=== PATIENT | female | born 1950 | race Caucasian/White ===

== ENCOUNTER 2019-05-30 06:05 | Inpatient (IN) ==
[2019-05-30] MEDS ORDERED: CeFAZolin Syr 2,000MG/20 ML 2,000 MG/20 ML SYRINGE IVPB ONE (06:26)
[2019-05-30] MEDS ORDERED: Albuterol 2.5 MG/3 ML NEBULIZER IH PRN (06:26)
[2019-05-30] MEDS ORDERED: Ringers Solution, Lactated 1,000 ML IVC SCH (06:30)
[2019-05-30] MEDS ORDERED: Neostigmine Methylsulfate 3 MG/3 ML SYRINGE ONE (07:08)
[2019-05-30] MEDS ORDERED: Ondansetron 4 MG/2 ML VIAL ONE (07:08)
[2019-05-30] MEDS ORDERED: *HR* Rocuronium Bromide 50 MG/5 ML VIAL ONE (07:08)
[2019-05-30] MEDS ORDERED: Dexamethasone 4 MG/ML VIAL ONE ×2 (07:08→08:03)
[2019-05-30] MEDS ORDERED: *HR* FentaNYL (PF) 100 MCG/2 ML VIAL ONE ×2 (07:08→09:02)
[2019-05-30] MEDS ORDERED: Lidocaine -MPF 2% 2 ML VIAL ONE (07:08)
[2019-05-30] MEDS ORDERED: *HR* Propofol 200 MG/20 ML VIAL IVP ONE (07:09)
[2019-05-30] MEDS ORDERED: *HR* Midazolam HCl 2 MG/2 ML VIAL ONE (07:09)
[2019-05-30] MEDS ORDERED: Lidocaine HCL 4 ML Topical Solution (Laryng-O-Jet Kit Sterile Pak) TP ONE (07:09)
[2019-05-30] MEDS ORDERED: Heparin 1,000 UNITS/500 mL 500 ML ONE (07:10)
[2019-05-30] MEDS ORDERED: Acetaminophen IV 1,000 MG/100 ML INFUS..BTL IVPB ONE (07:17)
[2019-05-30] MEDS ORDERED: Pregabalin 75 MG CAPSULE PO ONE (07:17)
[2019-05-30] MEDS ORDERED: Famotidine 20 MG/2 ML VIAL IVP ONE (07:17)
[2019-05-30] MEDS ORDERED: Isovue-300 50ML VIAL ONE (07:29)
[2019-05-30] MEDS ORDERED: Vancomycin 1,000 MG, Sodium Chloride IRRigation 1,000 ML IR ONE (07:45)
[2019-05-30] MEDS ORDERED: *HR* Succinylcholine 200 MG/10 ML VIAL IVP ONE (08:08)
[2019-05-30] MEDS ORDERED: EPHEDrine 50 MG/ML VIAL ONE (08:32)
[2019-05-30] MEDS ORDERED: *HR* OxyCODONE Immed Rel 5 MG TABLET PO PRN ×2 (09:11→13:08)
[2019-05-30] MEDS ORDERED: *HR* HYDROmorphone (PF) 1 MG/ML SYRINGE IVP PRN (09:11)
[2019-05-30] MEDS ORDERED: *HR* HYDROmorphone 2 MG TABLET PO PRN (09:11)
[2019-05-30] MEDS ORDERED: *HR* Labetalol 20 MG/4 ML SYRINGE IVP PRN ×2 (09:11→13:08)
[2019-05-30] MEDS ORDERED: Protamine Sulfate 50 MG/5 ML VIAL IVP ONE (10:06)
[2019-05-30] MEDS: *HR* Promethazine 25 MG/ML VIAL IVP PRN ×2 (11:24→11:44)
[2019-05-30] MEDS ORDERED: *HR* HYDROcodone/Acet 5/325 mg TABLET PO PRN (13:08)
[2019-05-30] MEDS ORDERED: 0.9 % Sodium Chloride 1,000 ML IVC SCH (13:08)
[2019-05-30] MEDS ORDERED: Naloxone 0.4 MG/ML INJ IVP PRN (13:08)
[2019-05-30] MEDS ORDERED: Ondansetron 4 MG/2 ML VIAL IVP PRN (13:08)
[2019-05-30] MEDS ORDERED: Acetaminophen/Butalbital/CaffeineTABLET PO PRN (13:08)
[2019-05-30] MEDS ORDERED: Melatonin 3 MG TABLET PO PRN (13:08)
[2019-05-30] MEDS ORDERED: Acetaminophen 325 MG TABLET PO PRN (13:08)
[2019-05-30] MEDS: *HR* Metoprolol 5 MG/5 ML VIAL IVP SCH ×2 (15:31→18:46)
[2019-05-30] MEDS: Nicotine 21 MG PATCH.TD24 TD SCH (20:00)
[2019-05-30] MEDS: *HR* LORazepam 1 MG TABLET PO PRN (22:04)
[2019-05-31] MEDS: *HR* Metoprolol 5 MG/5 ML VIAL IVP SCH ×2 (01:21→05:31)
[2019-05-31 04:56] LABS: Basophils % 0.1 %; Hematocrit 31.8 % (35.3-44.9); Immature Granulocytes % 1.1 % (0-4); Lymphocytes # 1.8 K/mcL (0.6-4.6); Mean Corpuscular HGB Conc 33.6 g/dL (31.6-35.5); Mean Corpuscular Hemoglobin 31.9 pg (28.0-33.3); Mean Corpuscular Volume 94.9 fL (83.0-100.0); Mean Platelet Volume 9.9 fL (9.4-12.4); Monocytes # 0.5 K/mcL (0.0-1.3); Monocytes % 4.7 %; Neutrophils # 7.8 K/mcL (1.6-8.9); Platelet Count 212 K/mcL (140-400); Red Blood Count 3.35 M/mcL (3.82-4.97); Red Cell Distribution Width 12.6 % (11.5-14.5); Segmented Neutrophils % 76.1 %; White Blood Count 10.2 K/mcL (4.3-11.1)
[2019-05-31 04:58] LABS: Hemoglobin 10.7 g/dL (11.5-15.4)
[2019-05-31 05:12] LABS: BUN/Creatinine Ratio 14 (6-26); Blood Urea Nitrogen 11 mg/dL (8-23); Calcium 8.8 mg/dL (8.6-10.3); Carbon Dioxide 27 mEq/L (23-29); Chloride 108 mEq/L (98-107); Glucose 120 mg/dL (70-105); Osmolality,Calculated 291 (280-300); Potassium 4.4 mEq/L (3.5-5.1); Sodium 140 mEq/L (136-145); eGFR For African Americans > 60 (> 60); eGFR For Non-African Americans > 60 (> 60)
[2019-05-31] MEDS ORDERED: *HR* Heparin 5,000 UNIT/ML VIAL SQ SCH ×2 (06:00)
[2019-05-31 08:02] VITALS: BP 130/63
[2019-05-31] MEDS ORDERED: hydroCHLOROthiazide 25 MG TABLET PO SCH (09:00)
[2019-05-31] MEDS ORDERED: NON-FORMULARY MEDICATION 1 EACH EACH (Valsartan/Hydrochlorothiazide [Diovan Hct 160-12.5 M PO SCH (09:00)
[2019-05-31] MEDS ORDERED: Valsartan 160 MG TABLET PO SCH (09:00)
[2019-05-31] MEDS ORDERED: Aspirin Enteric Coated 81 MG Tablet PO SCH (09:00)
[2019-05-31] MEDS: Nicotine 21 MG PATCH.TD24 TD SCH (09:05)
[2019-05-31] MEDS: *HR* LORazepam 1 MG TABLET PO PRN (09:07)
== END 2019-05-31 11:05 | disposition home or self-care (01) | DRG 271 ==
LOC: SAMDAY 06:05 → CDU 06:05 → ICNU 12:18 → SAMDAY 05-31 11:05 → ICNU 06-12 10:44
PROVIDERS: ADMIT Surgery; ATTEND Surgery